=== PATIENT | female | born 2000 | race Caucasian/White ===

== ENCOUNTER 2022-07-06 08:41 | Emergency (ER) | payer OTHER, SELFPAY ==
[2022-07-06 08:50] VITALS: BP 123/85; PULSE 95; RESP 16; TEMP 37; O2SAT 99
--- NOTE | 2022-07-06 09:07 | ED.URI ---
HPI - URI/Sore Throat General Chief Complaint: Upper Respiratory Infection Stated Complaint: sore throat, cough, congestion Time Seen by Provider: 07/06/22 09:17 Source: patient and RN notes reviewed Mode of arrival: ambulatory Limitations: no limitations History of Present Illness HPI Narrative: Tennis year old female presents with concern for 4 day history of sore throat, cough, headache, body aches postnasal drainage, fever. Reports taking Mucinex and Delsym. She reports history of mono, reports her symptoms feel like when she had mono. MD elicited complaint: cough and sore throat Related Data Home Medications Medication Instructions Recorded Confirmed citalopram 10 mg tablet 10 mg PO DAILY 07/06/22 07/06/22 Allergies Allergy/AdvReac Type Severity Reaction Status Date / Time amoxicillin Allergy Hives Verified 07/06/22 09:03 Review of Systems Review of Systems: CONSTITUTIONAL: Reports malaise, fever. EYES: Denies visual changes, redness, or discharge. ENT: Reports rhinorrhea, congestion, and sore throat. CARDIOVASCULAR: Denies chest pain, palpitations, or edema. RESPIRATORY: Reports cough. Denies dyspnea. GASTROINTESTINAL: Denies abdominal pain, nausea, vomiting, diarrhea SKIN: Denies rash or itching. MUSCULOSKELETAL: Reports myalgia. NEUROLOGIC: Denies headache. All systems reviewed & are unremarkable except as noted in HPI and below PMFSH Comments At time of signature, agree with nursing past medical, surgical, social and family history. There is no relevant family history pertinent to the presenting complaint Exam Narrative: GENERAL: Well-appearing, well-nourished, and in no acute distress. HEAD: Normocephalic EYES: PERRLA, conjunctivae clear ENT: Nares clear, turbinates edematous and erythematous, clear discharge. Mucous membranes moist. TM pearly calderon with dull light reflex bilaterally; no tragal tenderness. Oropharynx not erythematous without lesions. Tonsils not enlarged and without exudate, no drooling, no hoarseness, no trismus, uvula midline. NECK: Supple. No lymphadenopathy CHEST: Clear to auscultation, breath sounds equal. No wheezing, rhonchi, rales, or stridor. No respiratory distress, speaks in full sentences. HEART: Regular rate and rhythm. No murmur heard. SKIN: Warm, dry, no rash. NEURO: Alert and oriented x3. PSYCH: Normal mood and affect Course Course Emergency Course: Patient is aware of diagnosis, understands and agrees to treatment plan. Anticipatory guidance given. Patient agrees to follow-up as directed and is aware of reasons to seek care at the emergency department. Portions of this record may have been created with voice recognition software Level of Care: Express Care Visit Vital Signs Vital signs: Vital Signs Temperature 98.6 F 07/06/22 08:50 Pulse Rate 95 07/06/22 08:50 Respiratory Rate 16 07/06/22 08:50 Blood Pressure 123/85 07/06/22 08:50 Pulse Oximetry 99 07/06/22 08:50 Temperature 98.6 F 07/06/22 08:50 Pulse Rate 95 07/06/22 08:50 Respiratory Rate 16 07/06/22 08:50 Blood Pressure 123/85 07/06/22 08:50 Pulse Oximetry 99 07/06/22 08:50 Reviewed. MDM - URI/Sore Throat MDM Narrative Medical decision making narrative: Differential diagnosis considered: Montano virus, strep pharyngitis, allergic rhinitis, upper respiratory tract infection, sinusitis, rhinosinusitis, nasopharyngitis. viral pharyngitis, otitis media, otitis externa, pneumonia, bronchitis, viral cough syndrome, viral syndrome, and influenza. Exam findings show no acute concerns or changes; patient is non-toxic appearing and is in no distress. Patient is appropriate for outpatient treatment and follow-up. Lab Data Attestation: I reviewed the patient's lab results. Critical Care Time Critical Care Time Critical Care Time: No Discharge Plan Discharge Clinical Impression: Acute viral syndrome Patient Disposition: Home, Self-Care Condition: Stable Inst
== END 2022-07-06 10:05 | disposition home or self-care (01) ==
PROVIDERS: Emergency Provider Nurse Practitioner; PCP Nurse Practitioner
DX: B34.9 Viral infection, unspecified (principal)
CPT/HCPCS: 36416; 86308; 87081; 87804; 99213; G0463

== ENCOUNTER 2024-02-24 01:19 | Day surgery (SDC) | payer OTHER, SELFPAY ==
[2024-02-17 12:32] VITALS: BMI 28.8
--- NOTE | 2024-02-17 12:39 | PC.NURSE ---
Report to the Outpatient Waiting Room, entrance under the green pavilion located off [facility], at time _0600_ on date _[id number]_. Planned Procedure Time: _0730_. Time changes happen often and if your time is changed the preop area will call you the afternoon before. - You and your visitor will be asked to self-screen and do not enter if you have any COVID symptoms. - A mask is optional within the hospital at this time. Patients may have clear liquids (water, carbonated beverages, clear teas, apple juice) until 3 hours prior to surgery with a maximum of 20 ounces. - No food from midnight until time of surgery Take the following medications with a SIP of water the morning of surgery: ____None DO NOT STOP ANY OF YOUR OTHER PRESCRIPTION MEDICATIONS PRIOR TO SURGERY ?EXCEPT THE FOLLOWING Medications to discontinue per physician ___Lillyganniall Date to take last aihv__[id number] Please no make-up, nail maldivian, hairspray, perfume, deodorant, or body powder the day of surgery. No jewelry (including any body piercings) or valuables the day of surgery, leave them at home. Please take a shower or bath the night before, or the morning of, surgery with an antibacterial soap. Wear comfortable, loose fitting clothing. - Jewelry must be removed prior to entering the operating room. Rings and piercings that are not removed may be cut off. - The hospital will not accept responsibility for valuables. - Please leave all valuables, including medications, at home the day of surgery. If you are going home after surgery, a licensed heavy truck driver must drive you home. - NO public transportation without another adult if you receive anesthesia. - We recommend that an adult stay with you for 24 hours following discharge. - We also recommend that you do not drive, make important decision, drink alcoholic beverages, or take any drugs that were not prescribed by your health care provider for at least 24 hours after your discharge time. Follow any additional instructions given to you from your surgeon. If you or anyone in your household have experienced Covid symptoms in the past week, please notify your surgeon or the nurse liaison at the phone number below for possible testing. Telephone instructions given to __Katheryn__and asked if any additional questions and then verbalized understanding. Patient advised to call surgeon office or pre surgery nurse liaison [phone] if any additional questions.
[2024-02-24] VITALS (10 sets, daily range): BP systolic 120–142; BP diastolic 63–90; PULSE 80–119; RESP 16–20; TEMP 36.6–36.7; O2SAT 98–100
[2024-02-24] MEDS: LACTATED RINGERS 1,000 ML 30 ML IV CONT ×2 (06:35→10:45)
[2024-02-24 06:46] LABS: Urine Cotinine NEGATIVE
[2024-02-24 06:55] LABS: BEDSIDEPREGUCG Negative
--- NOTE | 2024-02-24 06:56 | WPDHPUPDATE1 ---
History and Physical Update Update Date/Time: 02/24/24 06:56 History and Physical has been reviewed, including an updated exam of the patient. There are NO changes in the patient's condition. Risks, benefits, and alternatives have been discussed and questions answered. Patient agrees to proceed with procedure.
--- NOTE | 2024-02-24 06:57 | P.OP_ITS ---
Procedure Note - Detailed Date of Procedure 02/24/24 Pre-op Diagnosis macromastia Post-op Diagnosis Same Procedure Performed Bilateral reduction mammaplasty Surgeon Neal Baxter MD Anesthesia General Findings Inverted T Superior medial pedicle Tissue removed: Right: 516 grams Left: 727 grams Description of Procedure She is here today for bilateral breast reduction. Previously and again today the risks, benefits, alternatives were discussed in extensive detail. I wanted her to be very realistic about the risks involved as well as expectations. We discussed aftercare and what to monitor for. She understands we can never guarantee final breast size and there will always be asymmetry. I was very upfront and honest about the risks of sensation change and even nipple loss (). Made sure answered all of her questions to her satisfaction today and consent was obtained. She was marked in the preoperative holding area with their verification. The patient was taken to the operating room placed supine on the operating table. Anesthesia was provided by anesthesiology. She was prepped and draped in a standard sterile fashion. A surgical time-out was taken. Stab incisions were made and I tumesced with a tumescent solution. Suction lipectomy of lateral breast / chest wall was completed for contouring with 3mm matteo cannula. This was based on preoperative planning, intraoperative observation, and a rolling pinch test which was in full agreement. I marked out the nipple-areolar complex at 42 mm. I then de-epithelialized the pedicle. The pedicle was well left well more than 2 cm in thickness. I then removed the inferior portion of the breast as well as the central keel to get shape based on preoperative planning. At this point copiously irrigated with saline solution and verified a strict hemostasis. I reapproximated the pillars using a 2-0 PDS. I tailor tacked the breast into place with denis. She was placed in a sitting position. I verified the nipple-areolar complex position based on preoperative markings, intraoperative measurements, and observation which were in full agreement. This nipple-areolar complex was marked at 42 mm in size. I then placed supine and de-epithelialized this. Nipple-areolar complex was inset with 3-0 Monocryl. I closed IMF deep with 1 strattafix. I closed the vertical incision with 3-0 Monocryl in the IMF with 3- 0 stratafix. Then everything was closed using a running subcuticular 4-0 Monocryl and tissue glue. A dressing was placed followed by surgical bra. Patient was awoke and taken to PACU without difficulty. All instrument sponge counts were correct at the end of the case. Estimated Blood Loss 50 Drains No Packing No Pathology Yes (Bilateral breast tissue) Complications No immediate complications Condition Stable Disposition PACU
--- NOTE | 2024-02-24 07:21 | P.PNAN_ITS ---
Anes - Initial Pre Proc Eval Procedure: Operation Date: 02/24/24 07:30 Proposed Procedures p Bilateral Breast Reduction - Neal Baxter MD Date/Time: 02/24/24 07:21 Surgeon: Neal Baxter MD Pre Op Diagnosis: macromastia Patient Data Age: 23 Gender: F Height: 1.59 m Weight: 70.5 kg Last Vital Signs Temp 97.8 F 02/24/24 06:16 Pulse 119 H 02/24/24 06:16 Resp 16 02/24/24 06:16 BP 142/90 H 02/24/24 06:16 Pulse Ox 100 02/24/24 06:16 O2 Del Method Room Air 02/24/24 06:16 Allergies Allergy/AdvReac Type Severity Reaction Status Date / Time amoxicillin Allergy Intermediate Hives Verified 02/24/24 06:50 clavulanic acid Allergy Intermediate Hives Verified 02/24/24 06:50 [From Augmentin] Home Medications Medication Instructions Recorded Confirmed Type citalopram 10 mg tablet 10 mg PO DAILY 07/06/22 02/24/24 History ashwagandha extract 120 mg capsule 120 mg PO HS 02/17/24 02/24/24 History Laboratory Tests 02/24/24 02/24/24 06:10 06:53 POC Urine HCG, Qual Negative POC Ur Preg QC Yes Cotinine Negative Patient hx anesthesia problems: post op nausea/vomiting Family hx anesthesia problems: none Results Review: All pre-operative results and documents have been reviewed as part of the pre- operative evaluation. PMFSH Social History Social History Smoking status: Never smoker Alcohol intake: current Living arrangements: with family Spiritual care concerns: No Anes - Eval Final PreProcedure Day of Procedure 02/24/24 07:21 Patient weight: normal Heart: regular rate and rhythm Lungs: clear to auscultation Airway: Mallampati scale class II Neurological: alert and oriented Last oral intake: >/= 8 hours ASA classification: II Emergent: no Anesthetic plan: proceed Anesthesia type and monitoring: general LMA and standard monitoring Results Review: All pre-operative results and documents have been reviewed as part of the pre- operative evaluation. Informed Consent: The patient's anesthetic plan and its attendant risks and benefits were discussed with the patient/family/POA. Questions were solicited and answers provided to the satisfaction of the patient/family/POA.
[2024-02-24] MEDS: SCOPOLAMINE 1 MG PATCH 1 PATCH TRANSDERM (07:25)
[2024-02-24] MEDS: TRANEXAMIC ACID 1,000MG/ISO100 1,000 MG/100 ML BAG 200 MG IVPB (07:29)
[2024-02-24] MEDS: ceFAZolin 2 GM/D5W 50 ML 2 GM/50 ML BAG IVPB (07:29)
[2024-02-24] MEDS: LACTATED RINGERS IRRIG 1,000 ML, LIDOCAINE HCL 1% LOCAL INJ 50 ML, EPINEPHrine HCL INJ ... INFILTRATE (09:21)
[2024-02-24] MEDS: fentaNYL CITRATE INJ (*CRX) 100 MCG/2 ML VIAL 25 MCG IV PUSH ×2 (11:01→11:34)
[2024-02-24] MEDS: oxyCODONE HCL (*CRX) 2.5 MG TAB IR PO (12:16)
[2024-02-24] MEDS: ONDANSETRON HCL ODT 4 MG TABLET PO (13:24)
--- NOTE | 2024-02-24 13:29 | SUR.PHASEII ---
1315- PT READY TO DISCHARGE, BECAME NAUSEATED. MEDICATION GIVEN ORDERED. PT RESTING AT THIS TIME
--- NOTE | 2024-02-24 13:31 | SUR.PHASEII ---
1230 - PT STATES THAT SHE FEELS BETTER.
== END 2024-02-24 13:40 ==
PROVIDERS: PCP Nurse Practitioner; Visit Provider Surgery Plastic and Reconstructive Surgery
PROC: 0HBV0ZZ Excision of Bilateral Breast, Open Approach (ICD-10-PCS; CPT 19318; principal; 2024-02-24 07:30)
DX: Z41.1 Encounter for cosmetic surgery (principal); N64.82 Hypoplasia of breast; D24.1 Benign neoplasm of right breast; N60.32 Fibrosclerosis of left breast; N60.31 Fibrosclerosis of right breast; J45.909 Unspecified asthma, uncomplicated; F32.A Depression, unspecified; Z98.890 Other specified postprocedural states; Z90.11 Acquired absence of right breast and nipple; Z80.3 Family history of malignant neoplasm of breast; Z82.49 Family history of ischemic heart disease and other diseases of the circulatory system
CPT/HCPCS: 19318; 80307; 88305; A9270; J0171; J0690; J1100; J1200; J2250; J2405; J2704; J3010; J7120

== ENCOUNTER 2025-01-26 17:41 | Emergency (ER) | payer SELFPAY ==
--- OUTSIDE RECORDS SUMMARY | 2025-01-26 17:44 | XMS_ITS | Encounter Summary ---
[facility] Organization [facility] Address [address] [place] [address] Care Team Providers Care Fruit Shipper Name Role Phone Unavailable Primary Care Provider Unavailabl e Encounter Details Date Type Department Care Team (Late st Contact Info) Description 01/24/2025 External Device Data [facility] ABSTRACTION Provider, Abstract NO ADDRESS ON FILE Social History Tobacco Use Types Packs/Day Years Used Date Smoking Tobacco: Never Assessed Comments Unknown Sex and Gender Information Value Date Recorded Sex Assigned at Not on file Legal Sex Female 3:48 PM DESIGN ENGINEERING INTERN Gender Identity Not on file Sexual Orientation Not on file documented as of this encounter Plan of Treatment Not on file documented as of this encounter Visit Diagnoses Not on filedocumented in this encounter
--- OUTSIDE RECORDS SUMMARY | 2025-01-26 17:44 | XMS_ITS | Encounter Summary ---
Author Organization [facility] Address [address] [place] [address] Care Team Providers Care Senior Game Designer Name Role Phone Mary Jo Ingram NP Primary Care Provider [phone] Martina Alvarado MD Primary Care Provider + Encounter Details Date Type Department Care Team (Late Contact Info) Description 01/06/[address] [facility] [address] [place], [place] [address] [facility], [facility] Provider Air Quality Message Social History Tobacco Use Types Packs/Day Years Used Date Smoking Tobacco: Never Passive Smoke Exposure: Never Smokeless Tobacco: Never Alcohol Use Standard Drinks/Week Comments Yes 0 (1 standard drink = 0.6 oz pur e alcohol) socially AUDIT-C Answer Date Recorded Q1: How often do you have a drink containing alc ohol? Never 04/02/2020 Average Number of Drinks Not on file 020 Frequency of Binge Drinking Not on file 03/13 PHQ-2 Answer Date Recorded PHQ-2 Score - If the patient scores above 3, please move on to questions 3-9 3 02/23/2022 Comments No Sex and Gender Information Value Date Recorded Sex Assigned at Not on file Legal Sex Female 12:17 PM CDT Gender Identity Female 10/28/2021 9:05 AM CDT Sexual Orientation Not on file documented as of this encounter Plan of Treatment Upcoming Encounters Date Type Department Care Team (Late Contact Info) Description 06/21/2025 8:50 AM COOLER CONVEYOR LOADER Office Visit [facility] [place] [address] [place] [address] Martina Alvarado MD [address] [place], [place] [address] documented as of this encounter Visit Diagnoses Not on filedocumented in this encounter Additional Health Concerns Assessment Noted Time PHQ-9 Depression Total Score: 13 022 9:16 AM CDT documented as of this encounter Care Teams Senior Game Designer Relationship Specialty Start Date End Date Mary Jo Ingram NP [address] [place] [address] PCP - General NURSE PRACTITIONER 10/22/21 12/17/24 Martina Alvarado MD [address] [place], [place] [address] PCP - General FAMILY PRACTICE 12/18/24 documented as of this encounter
--- OUTSIDE RECORDS SUMMARY | 2025-01-26 17:44 | XMS_ITS | Clinical Summary ---
Author Organization [facility] Address [address] [place] [address] Care Team Providers Care Jewelry Sales Associate Name Role Phone Mary Jo Ingram APRN-[facility] Primary Care Provi christie Source Comments [facility],non-owned Affiliates and Associated Physician Practices is amultiple site organization consisting of ambulatory clinics and hospital sitesin [place], [place], [place] and [place]. This disclosure is being madepursuant to the Care Everywhere program and may not contain all information available regarding this patient. Last updated 18.[facility] Allergies Active Allergy Reactions Criticality Noted Date Comments Amoxicillin Urticaria High 12/13/2017 Amoxicillin-Pot Clavulanate Urticaria High 12/14/19 18 Augmentin Urticaria Medium 12/13/2017 Medications * Be aware that medications may not be up to date on this document. Alwaysverify current medications with the patient. cetirizine (ZYRTEC) 10 MG tablet Take 1 (one) tablet by mouth once daily Active citalopram (CeleXA) 10 MG tablet Take 1 (one) tablet by mouth once daily 2 Active Albuterol Sulfate 108 (90 Base) MCG/ACT 4 Active levonorgestrel (Mirena) 20 MCG/DAY IUD 1 (one) device by Intrauterine route Active Active Problems Problem Noted Date Diagnosed Date IUD contraception 10/06/2023 Bleeding after intercourse 08/01/202309/07 Lump in lower inner quadrant of right breast 09/07/2023 Mild intermittent asthma without complication 10/05/2023 Seasonal allergies 10/31/2021 10/05/2023 Anxiety 10/30/2021 09/07/2023 Anxiety and depression 10/30/2021 Mass of lower outer quadrant of right breast Contraception management 04/30/2017 Mass of upper outer quadrant of right breast Immunizations Immunization Administration Dates Next Due INFLUENZA VACCINE, QUADR. (F LUZONE; FLULAVAL; FLUARIX; AFLURIA QUADRIVALENT; 6MO+), 0.5 ML (IIV4) 04/30/2017 Family History Medical History Relation Name Comments Thyroid Disease Mother Relation Name Status Comments Father Alive Mother Alive Social History Tobacco Use Types Packs/Day Years Used Date Smoking Tobacco: Never Smokeless Tobacco: Never Tobacco Cessation:Counseling Given: Not Answered Alcohol Use Standard Drinks/Week Comments No 0 (1 standard drink = 0.6 oz pur e alcohol) Overall Financial Resource Strain (CARDIA) Answe r Date Recorded Difficulty of Paying Living Expenses Not hard at all 03/10/2019 PHQ-2 Answer Date Recorded Patient Health Questionnaire-2 Score 0 09/06/2024 Hunger Vital Sign Answer Date Recorded Worried About Running Out of Food in the Last Ye ar Never true 03/10/2019 Ran Out of Food in the Last Year Never true 03/10/2019 PRAPARE - Transportation Answer Date Re corded Lack of Transportation (Medical) No 03/10/2019 Lack of Transportation (Non-Medical) No 03/10/2019 Comments No Sex and Gender Information Value Date Recorded Sex Assigned at Not on file Legal Sex Female 5:39 AM TOOLMAN Gender Identity Not on file Sexual Orientation Not on file Occupation Industry Job Start Date Job End Date student Not on file Not on file Not on file Last Filed Vital Signs Vital Sign Reading Time Taken Comments Blood Pressure 126/80 09/13/2024 4:19 PM TOOLMAN Pulse 96 09/13/2024 4:19 PM TOOLMAN Temperature 36.2 C (97.2 F) 11/22/2018 11:00 AM CDT Respiratory Rate 16 03/10/2019 2:38 PM CDT Oxygen Saturation 95% 11/22/2018 11:20 AM CDT Inhaled Oxygen Concentration - - Weight 76.7 kg (169 lb) 09/13/2024 4:19 PM TOOLMAN Height 160 cm (5' 3) 03/08/2024 4:26 PM CDT Body Mass Index 29.94 03/08/2024 4:26 PM CDT Plan of Treatment Upcoming Encounters Date Type Department Care Team (Late st Contact Info) Description 09/19/2025 3:45 PM CDT Office Visit [facility] - DONOR RECRUITER [address] [place], [place] [address] [address] Khurram Harris MD [address] [place] [address] [address] [place] [address] Health Maintenance Due Date Last Done Comments HIV SCREENING 2014 HPV VACCINE (1 - 3-dose series) 2014 DTAP/TDAP/TD VACCINES (1 - Tdap) 2018 HEPATITIS B VACCINE (1 of 3 - 19+ 3-dose series) 2018 PNEUMOCOCCAL VACCINE (1 of 2 - PCV) 2018 COVID-19 VACCINE (3 - season) 2024 01/29/2021, 01/08/2021 INFLUENZA VACCINE (#1) 2025 9, 04/30/2017, 05/27/2016 CHLAMYDIA/GONORRHEA SCREENING 09/13/2025 09/13/2024, 09/08/2023, 12/28/2018, Additional history exists PAP SMEAR 09/14/2027 09/13/2024, 09/08/2023 ZOSTER VACCINE (1 of 2) 2049 HEPATITIS C SCREENING Completed 03/26/2023 DEPRESSION SCREENING Completed 09/13/2024, 09/08/19 24 HIB VACCINE Aged Out No longer eligi ble based on patient's age to complete this topic MENINGOCOCCAL (Group B) VACCINE SHARED DECISION-MAKING Aged Out No longer eligible based on patient's age to complete this topic MENINGOCOCCAL GROUPS A/C/Y/W VACCINE Aged Out No longer eligible based on patient's age to complete this topic Procedures Procedure Name Priority Date/Time Associated Diagnosis Comments PAP IG LB CT+NG RFLX HPV APTIMA ASCU Routine 09/13/2024 4:36 PM TOOLMAN Well woman exam Screening for cervical cancer from Last 3 Months or Most Recently Relevant to Health Maintenance Results * PAP IG LB CT+NG RFLX HPV APTIMA ASCU (09/13/2024 4:36 PM TOOLMAN) Diagnosis Comment [facility] ACCOUNT BILL Comment:NEGATIVE FOR INTRAEP ITHELIAL LESION OR MALIGNANCY. Specimen Adequacy Comment [facility] ACCOUNT BILL Comment: Satisfactory for evaluation. Endocervical and/or squamous metaplastic cells (endocervical component) are present. Clinician Provided ICD10 Comment [facility] ACCOUNT BILL Comment: Z01.419 Z12.4 Performed by Comment [facility] ACCOUNT BILL Comment:Valentin Maurer totechnologist (ASCP) Comment . [facility] ACCOUNT BILL Note Comment [facility] ACCOUNT BILL Comment: The Pap smear is a screening test designed to aid in the detection of premalignant and malignant conditions of the uterine cervix. It is not a diagnostic procedure and should not be used as the sole means of detecting cervical cancer. Both false-positive and false-negative reports do occur. IGLBP CPT Code Automation Comment [facility] ACCOUNT BILL Comment: This liquid based ThinPrep(R) pap test was screened with the use of an image guided system. Note Comment [facility] ACCOUNT BILL Comment: The HPV DNA reflex criteria were not met with this specimen result therefore, no HPV testing was performed. Chlamydia trachomatis ADRIANO Negative Negative [facility] ACCOUNT BILL GC DNA Probe Negative Negative [facility] ACCOUNT BILL PART OF UTERINE CERVIX / Unknown 09/13/2024 4:36 PM TOOLMAN 09/13/2024 Comment:Cervix Release to pa tom Narrative [facility] ACCOUNT BILL - 09/17/2024 5:08 PM CDT Performed at: 01 - [facility] [id number] Log Peeler: Estelle Godwin MD, Phone: [phone] Performed at: 02 - [facility] [id number] Log Peeler: Estelle Godwin MD, Phone: [phone] Specimen Comment: [id number] Specimen Comment: No. of containers..01 ThinPrep Vial Khurram Harris MD LAB - PATHOLOGY/CYTOLOGY [facility] Final Result [facility] ACCOUNT BILL [address] [place] [address] from Last 3 Months or Most Recently Relevant to Health Maintenance Insurance SELF PAY NO INSURANCE Member Subscriber Plan / Payer (Ef fective for All Dates) Name:Katheryn Baumann Member ID:Not on file Relation to Subscriber:Not on file Name:KATHERYN BAUMANN Subscriber ID:Not on file (Home) Address: [address] [place] [address] Payer ID:Not on file Group ID:Not on file Type:Self Pay Address: [facility] * Guarantor: KATHERYN CLEMENTS Account Type Relation to Patient Date of Phone Billing Address Personal/Family 2000 Care Teams Jewelry Sales Associate Relationship Specialty Start Date End Date Mary Jo Ingram, POLICE CHIEF DEPUTY-SENIOR BUSINESS MANAGER [address] [place] [address] PCP - General Nurse Practitioner 09/14/23
--- OUTSIDE RECORDS SUMMARY | 2025-01-26 17:44 | XMS_ITS | Encounter Summary ---
Author Organization [facility] Address [facility] [place] [address] Care Team Providers Care Regional Flatbed Truck Driver Name Role Phone Martina Alvarado MD Primary Care Provider + Encounter Details Date Type Department Care Team (Late Contact Info) Description 12/26/2024 Results Follow-Up [facility] Family Medicine [facility] [address] [place] [phone] Martina Alvarado MD [address] [place] [address] [phone] THYROID STIM HORMONE TSH, THYROXINE, FREE (FT4) Social History Tobacco Use Types Packs/Day Years Used Date Smoking Tobacco: Never Passive Smoke Exposure: Never Smokeless Tobacco: Never Alcohol Use Standard Drinks/Week Comments Yes 1.7 (1 standard drink = 0.6 oz p ure alcohol) socially AUDIT-C Answer Date Recorded Q1: How often do you have a drink containing alc ohol? Never 04/02/2020 Average Number of Drinks Not on file 020 Frequency of Binge Drinking Not on file 03/13 PHQ-2 Answer Date Recorded Patient Health Questionnaire-2 Score 0 12/18/2024 Comments No Sex and Gender Information Value Date Recorded Sex Assigned at Not on file Legal Sex Female 12:17 PM CDT Gender Identity Female 10/28/2021 9:05 AM CDT Sexual Orientation Not on file documented as of this encounter Plan of Treatment Upcoming Encounters Date Type Department Care Team (Late Contact Info) Description 06/21/2025 8:50 AM ENVIRONMENTAL CONSERVATION OFFICER Office Visit [facility] Family Medicine - [place] [address] [place] [address] Martina Alvarado MD [address] [place], [place] [phone] documented as of this encounter Visit Diagnoses Not on filedocumented in this encounter Additional Health Concerns Assessment Noted Time PHQ-9 Depression Total Score: 6 01/20/20 23 11:05 AM CDT documented as of this encounter Care Teams Regional Flatbed Truck Driver Relationship Specialty Start Date End Date Martina Alvarado MD [address] [place], [place] [phone] PCP - General FAMILY PRACTICE 12/18/24 documented as of this encounter
--- OUTSIDE RECORDS SUMMARY | 2025-01-26 17:44 | XMS_ITS | Clinical Summary ---
Author Organization [facility] Address [address] [place] [address] Care Team Providers Care Nutrition Director Name Role Phone Unavailable Primary Care Provider Unavailabl e Allergies Active Allergy Reactions Criticality Noted Date Comments Amoxicillin Hives High 05/20/2022 Amoxicillin-Pot Clavulanate Hives High 05/20/20 22 Medications citalopram (CeleXA) 10 mg tablet Take 1 Tablet (10 mg) by mouth daily. 90 Tablet 06/22/2022 4:36 PM AGRICULTURAL EQUIPMENT SALES MANAGER 02/23/2022 Active citalopram (CeleXA) 10 mg tablet Take 1 tablet (10 mg total) by mouth daily. 90 Tablet 1 12/21/2022 5:18 PM CDT 07/08/2022 Active albuterol sulfate HFA 90 mcg/actuation aerosol inhaler Inhale 2 puffs into the lungs every 6 (six) hours as needed for Wheezing. 17 Gram 1 01/20/2023 6:42 PM CDT 01/19/2023 Active neomycin-polymy becky-dexAMETHaso ne (Maxitrol) 3.5 mg/g-10,000 unit/g-0.1 % ointment Apply to the right eye three times daily after warm compress/mas kimber. 3.5 Gram 1 06/17/2023 7:25 PM AGRICULTURAL EQUIPMENT SALES MANAGER 06/17/2023 Active azithromycin (ZITHROMAX) 250 mg tablet Take 2 tablets by mouth on day one then 1 daily for four days. 6 Tablet 07/14/2023 4:52 PM AGRICULTURAL EQUIPMENT SALES MANAGER 07/14/2023 Active citalopram (CeleXA) 10 mg tablet Take 1 tablet (10 mg total) by mouth daily. 90 Tablet 1 12/18/2024 Active Encounters Date Type Department Care Team Description 01/24/2025 External Device Data STL ABSTRACTION Provider, Abstract 01/23/2025 External Device Data STL ABSTRACTION Provider, Abstract 12/26/2024 External Device Data ST[place] ABSTRACTION Provider, Abstract 11/30/2024 External Device Data STL ABSTRACTION Provider, Abstract 11/30/2024 External Device Data STL ABSTRACTION Provider, Abstract 11/29/2024 External Device Data STL ABSTRACTION Provider, Abstract 11/29/2024 External Device Data STL ABSTRACTION Provider, Abstract 11/28/2024 External Device Data STL ABSTRACTION Provider, Abstract from Last 3 Months Social History Tobacco Use Types Packs/Day Years Used Date Smoking Tobacco: Never Assessed Comments Unknown Sex and Gender Information Value Date Recorded Sex Assigned at Not on file Legal Sex Female 3:48 PM AGRICULTURAL EQUIPMENT SALES MANAGER Gender Identity Not on file Sexual Orientation Not on file Plan of Treatment Health Maintenance Due Date Last Done Comments HPV VACCINES (1 - 3-dose series) 2014 DTAP/TDAP/TD VACCINES (1 - Tdap) 2018 HEPATITIS B VACCINES (1 of 3 - 19+ 3-dose series) 07/12 CERVICAL CANCER SCREENING 2020 HPV/Cotest (21-29) 2020 PAP SMEAR 2020 INFLUENZA VACCINE (#1) 2025 Insurance RX [employer] (INTERNAL) [facility] [employer]
--- OUTSIDE RECORDS SUMMARY | 2025-01-26 17:44 | XMS_ITS | Encounter Summary ---
Author Organization [facility] Address [facility] [place] [address] Care Team Providers Care Partnership Marketing Manager Name Role Phone Mary Jo Ingram NP Primary Care Provider [phone] Martina Alvarado MD Primary Care Provider + Encounter Details Date Type Department Care Team (Late st Contact Info) Description 01/19/2023 Startup Questt Message Enc [facility] Family Medicine [facility] [address] [facility] [address] [place] [address] [phone] Mary Jo Ingram NP [address] [place] [address] [phone] Tdap Social History Tobacco Use Types Packs/Day Years Used Date Smoking Tobacco: Never Passive Smoke Exposure: Never Smokeless Tobacco: Never Alcohol Use Standard Drinks/Week Comments Not Currently 1.7 (1 standard drink = 0.6 oz p ure alcohol) Less than 1 a week AUDIT-C Answer Date Recorded Q1: How often do you have a drink containing alc ohol? Never 04/02/2020 Average Number of Drinks Not on file 020 Frequency of Binge Drinking Not on file 03/13 PHQ-2 Answer Date Recorded Patient Health Questionnaire-2 Score 1 01/19/2023 Comments No Sex and Gender Information Value Date Recorded Sex Assigned at Not on file Legal Sex Female 12:17 PM CDT Gender Identity Female 10/28/2021 9:05 AM CDT Sexual Orientation Not on file documented as of this encounter Functional Status * Over the past 2 weeks, how often have you been bothered by any of the following problems? Question Answer Date of Assessment Author Status Little interest or pleasure in doing things Several days 01/19/2023 11:05 AM Annika Chowdary MA Act delaney Feeling down, depressed, or hopeless Not at all 01/19/2023 11:05 AM Annika Chowdary MA Active Patient Health Questionnaire-2 Score 1 01/19/2023 11:05 AM Annika Chowdary MA Active * Question Answer Date of Assessment Author Status Trouble falling or staying asleep, or sleeping too much More than half the days 01/19/2023 11:05 AM Annika Chowdary MA Active Feeling tired or having little energy Several days 01/19/2023 11:05 AM Annika Chowdary MA Active Poor appetite or overeating Several days 01/19/2023 11:05 AM Annika Chowdary MA Active Feeling bad about yourself - or that you are a failure or have let yourself or your family down Several days 01/19/2023 11:05 AM Annika Chowdary MA Active Trouble concentrating on things, such as reading the newspaper or watching television Not at all 01/19/2023 11:05 AM Annika Chowdary MA Active Moving or speaking so slowly that other people could have noticed? Or the opposite - being so fidgety or restless that you have been moving around a lot more than usual. Not at all 01/19/2023 11:05 AM Annika Chowdary MA Active Thoughts that you would be better off or hurting yourself in some way Not at all 01/19/2023 11:05 AM Annika Chowdary MA Active Patient Health Questionnaire-9 Score 6 01/19/2023 11:05 AM Annika Chowdary MA Active * If you checked off any problems on this questionnaire so far, Question Answer Date of Assessment Author Status How difficult have these problems made it for you to do your work, take care of things at home, or get along with other people? Not difficult at all 01/19/2023 11:05 AM Annika Chowdary MA Active * Over the last 2 weeks, how often have you been bothered by any of the following problems? Question Answer Date of Assessment Author Status Feeling nervous, anxious, or on edge 2 01/19/2023 11:06 AM CDT Annika Ellington MA Act delaney Not being able to stop or control worrying 1 01/19/2023 11:06 AM CDT Annika Ellington MA Ac tive Worrying too much about different things 1 01/19/2023 11:06 AM CDT Annika Ellington MA Ac tive Trouble relaxing 1 01/19/2023 11:06 AM CDT Annika Ellington MA Active Being so restless that it is hard to sit still 0 01/19/2023 11:06 AM CDT Annika Ellington M A Active Becoming easily annoyed or irritable 0 01/19/2023 11:06 AM CDT Annika Ellington MA Act delaney Feeling afraid as if something awful might happen 0 01/19/2023 11:06 AM CDT Annika Ellington MA Act delaney ZOILA-7 Total Score 5 01/19/2023 11:06 AM CDT Annika Ellington MA Active documented as of this encounter Plan of Treatment Upcoming Encounters Date Type Department Care Team (Late st Contact Info) Description 06/21/2025 8:50 AM MANAGER LINUX Office Visit [facility] Family Medicine - [place] [address] [facility] [address] [place] [address] Martina Alvarado MD [address] [place], [place] [phone] documented as of this encounter Visit Diagnoses Not on filedocumented in this encounter Additional Health Concerns Assessment Noted Time PHQ-9 Depression Total Score: 6 01/20/20 23 11:05 AM CDT documented as of this encounter Care Teams Partnership Marketing Manager Relationship Specialty Start Date End Date Mary Jo Ingram NP [address] [place], [place] [phone] PCP - General NURSE PRACTITIONER 10/22/21 12/17/24 Maritna Alvarado MD [address] [place] [address] [phone] PCP - General FAMILY PRACTICE 12/18/24 documented as of this encounter
--- OUTSIDE RECORDS SUMMARY | 2025-01-26 17:44 | XMS_ITS | Clinical Summary ---
Author Organization [facility] Address [address] [place] [address] Care Team Providers Care Mushroom Grower Name Role Phone Martina Alvarado MD Primary Care Provider + Allergies Active Allergy Reactions Criticality Noted Date Comments Amoxicillin Hives High 12/13/2017 Amoxicillin-Pot Clavulanate Hives High 12/14/19 18 Medications levonorgestrel 20 MCG/24HR IUD 1 Device by Intrauterine route. Placed in January 2024 Active CETIRIZINE 10 MG tabletIndication s:Mild intermittent asthma without complication (HHS/HCC) TAKE 1 TABLET BY MOUTH DAILY 30 tablet 1 Active Melatonin 1 MG Chew Tab 2 Active albuterol sulfate HFA 108 (90 Base) MCG/ACT inhalerIndicatio ns:Mild intermittent asthma without complication (HHS/HCC) Inhale 2 puffs into the lungs every 6 (six) hours as needed for Wheezing. 17 g 1 3 Active citalopram (CELEXA) 10 MG tabletIndication s:Anxiety and depression Take 1 tablet (10 mg total) by mouth daily. 90 tablet 1 5 Active Active Problems Problem Noted Date Diagnosed Date Anxiety and depression 02/23/2022 Overview (12/18/2024): Well controlled with use of citalopram 10 mg daily. Denies SI/HI. Therapy twice a month. Now engaged. Will be changing jobs. More anxiety- when she started it, she was irritable a lot. Assessment & Plan (03/02/2024 7:29 PM CDT): Chronic condition. Controlled. No changes at this time. Mild intermittent asthma without complication (H HS/HCC) 10/31/2021 Overview (03/02/2024): Currently well controlled with use of albuterol PRN. Does not need to use often. Assessment & Plan (03/02/2024 7:28 PM CDT): Chronic condition. Controlled. No changes at this time. If needing to use rescue inhaler more then twice a week to notify me. Seasonal allergies 10/31/2021 Overview (03/02/2024): Well controlled with cetirizine daily. Assessment & Plan (03/02/2024 7:25 PM CDT): Chronic condition, controlled. No changes needed at this time. Avoid potential allergy triggers. Overweight (BMI 25.0-29.9) 10/31/2021 Assessment & Plan (03/02/2024 7:26 PM CDT): Encourage following a healthy well balance diet and staying active. Resolved Problems Problem Noted Date Diagnosed Date Resolved Date Asthma (HHS/HCC) 10/28/2004 10/31/2021 Encounters Date Type Department Care Team Description 12/26/2024 Results Follow-Up [place] [id number] [place] [address] Martina Alvarado MD THYROID STIM HORMONE TSH, THYROXINE, FREE (FT4) 12/18/2024 10:10 AM CDT Office Visit [facility] [address] [place] [address] Martina Alvarado MD Follow Up (Transferring from [facility]/wants to discuss weight/sugars. ) 12/18/2024 Travel from Last 3 Months Immunizations Immunization Administration Dates Next Due Dtap (Generic) 07/29/2004, 1,01/26/2000,1999,1999 Flucelvax 2 YRS+ (Multi-Dose Vial) 04/19/2019 HPV4 (Gardasil) 08/30/2012,01/15/2011,11/11/2010 Hepatitis A 11/21/2007,07/30/2006 Hepatitis B 04/27/2001,1999,1999 Hib 01/27/2001, 0,1999,1999 Influenza (Generic) 05/27/2016 Influenza Adult (Generic) 04/19/2019,04/30/2017 MMR 07/29/2004,07/30/2000 Menactra 11/12/2015,11/11/2010 Meningcoccal Group B (Bexser o)(aka Meningitis) 02/17/2018 PFIZER COVID-19 (ORIGINAL FORMULATION, PURPLE CAP) mRNA, LNP-S, PF, 30 MCG/0.3 ML DOSE 01/29/2021,01/08/2021 Polio Ipv (Generic) 07/29/2004, 1,1999,1999 Tdap (Generic) 11/11/2010 Varicella Vaccine 07/30/2006,10/28/2000 Family History Medical History Relation Comments Arthritis Father Asthma Father Early Hearing Loss Father Hypertension Father Asthma Maternal Aunt Diabetes Maternal Grandfather Hypertension Maternal Grandfather Arthritis Maternal Grandmother Miscarriages / Stillbirths Maternal Grandmother COPD Maternal Uncle 1 Arthritis Maternal Uncle 2 Asthma Maternal Uncle 2 Hypertension Maternal Uncle 2 Arthritis Mother Asthma Mother Depression Mother Mental Health Mother Miscarriages / Stillbirths Mother Heart Disease Paternal Grandfather Hypertension Paternal Grandfather Breast Cancer Paternal Grandmother Cancer Paternal Grandmother Breast canc er Asthma Sister 1 Asthma Sister 2 Duplicate Depression Sister 2 Asthma Sister 3 Depression Sister 3 Asthma Sister 4 Mental Health Sister 4 Anxiety Mental Health Sister 5 Anxiety Relation Status Comments Father Alive Maternal Aunt Alive Maternal Grandfather Alive Maternal Grandmother Alive Maternal Uncle 1 Maternal Uncle 2 Alive Mother Alive Paternal Grandfather Alive Paternal Grandmother Alive Sister 1 Alive Sister 2 Sister 3 Sister 4 Alive Sister 5 Alive Social History Tobacco Use Types Packs/Day Years Used Date Smoking Tobacco: Never Passive Smoke Exposure: Never Smokeless Tobacco: Never Tobacco Cessation:Counseling Given: No Alcohol Use Standard Drinks/Week Comments Yes 1.7 [...] AM CDT Sexual Orientation Not on file Last Filed Vital Signs Vital Sign Reading Time Taken Comments Blood Pressure 110/80 12/18/2024 10:16 AM CDT Pulse 80 12/18/2024 10:16 AM CDT Temperature 36.7 C (98.1 F) 12/18/2024 10:16 AM CDT Respiratory Rate 18 07/13/2024 12:23 PM HEAVY EQUIPMENT SERVICE TECHNICIAN Oxygen Saturation 98% 12/18/2024 10:16 AM CDT Inhaled Oxygen Concentration - - Weight 76.4 kg (168 lb 6.4 oz) 12/18/2024 10:16 AM CDT Height 161.9 cm (5' 3.75) 12/18/2024 10:16 AM C DT Body Mass Index 29.13 12/18/2024 10:16 AM CDT Plan of Treatment Upcoming Encounters Date Type Department Care Team (Late st Contact Info) Description 06/21/2025 8:50 AM HEAVY EQUIPMENT SERVICE TECHNICIAN Office Visit [facility] Family Medicine - [place] [address] [place] [phone] Martina Alvarado MD [address] [place] [address] Health Maintenance Due Date Last Done Comments Meningococcal B Vaccine (2 of 2 - Bexsero SCDM 2-dose series) 08/20/2018 02/17/2018 DTaP, Tdap and Td Vaccines (7 - Td or Tdap) 11/11/2020 11/11/2010, 07/29/2004, 01/27/2001, Additional history exists COVID-19 Vaccine (3 - season) 2024 01/29/2021, 01/08/2021 Annual Physical 03/01/2025 03/01/2024, 01/09, 10/31/2021 Cervical Cancer Screening Pap Smear (Age 21 to 29) Every 3 Years 09/14/2027 09/13/2024, 09/08/2023 Cervical Cancer Screening 09/14/2027 Pneumococcal Vaccine: Pediatrics (0 to 5 Years) and At-Risk Patients (6 to 49 Years) (1 of 2 - PCV) 07/12/2029 Postponed from 2018 (Future Appointment) Hepatitis B Vaccines Completed 04/27/2001, 1999, 1999 HPV Vaccines Completed 08/30/2012, 01/2011, 11/11/2010 Meningococcal Vaccine Completed 11/12/2015, 011 Hepatitis C Completed 03/26/2023 Chlamydia Screening Females ages 16-24 Discontinued 09/13/2024, 09/08/2023 PHQ-2 (Physician [place]) Completed 12/18/2024 RSV Immunizations Under 20 Months Aged Out No longer eligible based on patient's age to complete this topic Procedures Procedure Name Priority Date/Time Associated Diagnosis Comments THYROXINE, FREE (FT4) Routine 12/25/2024 10:36 AM CDT Weight gain THYROID STIM HORMONE TSH Today 12/25/2024 10:36 AM CDT Weight gain HEPATITIS C ANTIBODY W/RFX TO HCV RNA Routine 03/26/2023 10:47 AM CDT Need for hepatitis C screening test from Last 3 Months or Most Recently Relevant to Health Maintenance Results * THYROXINE, FREE (FT4) (12/25/2024 10:36 AM CDT) FREE T4 0.99 0.82 - 1.77 ng/dL [facility] 1 12/25/2024 10:3 6 AM CDT 12/25/2024 Narrative [facility] - 12/26/2024 2:06 AM CDT Performed at: [address] [place] [id number] Reservations Specialist: Adan Bliss PhD, Phone: [phone] Martina Alvarado MD LABORATORY Final Re sult Performing Organization Address [facility] de Phone Number [facility] [address] [place] [address] [facility] 1 * THYROID STIM HORMONE TSH (12/25/2024 10:36 AM CDT) [facility] TSH 1.310 0.450 - 4.50 uIU/mL [facility] 1 12/25/2024 10:3 6 AM CDT 12/25/2024 Narrative [facility] - 12/26/2024 2:06 AM CDT Performed at: [address] [place] [id number] Reservations Specialist: Adan Bliss PhD, Phone: [phone] Martina Alvarado MD LABORATORY Final Re sult Performing Organization Address [facility] de Phone Number [facility] [address] [place] [id number] [facility] 1 * HEPATITIS C ANTIBODY W/RFX TO HCV RNA (03/26/2023 10:47 AM CDT) [facility] HEPATITIS C AB NON-REACT DALILA NON-REACT DALILA [facility] Comment: HCV antibody was non-reactive. There is no laboratory evidence of HCV infection. In most cases, no further action is required. However, if recent HCV exposure is suspected, a test for HCV RNA (test code 90615) is suggested. For additional information please refer to http://education.[employer]/faq/XGM23z5 (This link is being provided for informational/ educational purposes only.) 03/26/2023 10:4 7 AM CDT 03/26/2023 10:51 AM CDT Narrative [facility] - 03/27/2023 5:43 AM CDT FASTING:YES FASTING: YES Resulting Agency Comment Performing Organization Information: Site ID: [id number] Name: [facility] Address: [address] [id number] Director: Lela Desai MD us Mary Jo Ingram [facility] Final Res ult [facility] FAH[address] [place]OV[place] [facility] [id number] [id number], from Last 3 Months or Most Recently Relevant to Health Maintenance Insurance [facility] Care Teams Mushroom Grower Relationship Specialty Start Date End Date Martina Alvarado MD [address] [place] [phone] PCP - General FAMILY PRACTICE 12/18/24
--- NOTE | 2025-01-26 17:46 | ED.FEMALEGU ---
HPI - Female Genitourinary General Chief complaint: Urogenital-Female Stated complaint: uti/ back pain Time Seen by Provider: 01/26/25 17:44 Source: patient, RN notes reviewed and old records reviewed Mode of arrival: ambulatory Limitations: no limitations History of Present Illness HPI Narrative: 24-year-old female presents to the [facility] with concerns for UTI. States that frequency, burning started yesterday. Has taking Cystex Denies any fevers. Denies nausea or vomiting. Has a IUD Onset (ago): day(s) (1) Related Data Home Medications ?Medication ?Instructions ?Recorded ?Confirmed ?Last Taken ?Type citalopram 10 mg tablet 10 mg PO DAILY 07/06/22 02/24/24 Unknown History ashwagandha extract 120 mg capsule 120 mg PO HS 02/17/24 02/24/24 Unknown History levonorgestrel (Mirena) 1 device intrauterine ONCE 01/26/25 01/26/25 Unknown History Allergies Allergy/AdvReac Type Severity Reaction Status Date / Time amoxicillin Allergy Intermediate Hives Verified 01/26/25 17:55 clavulanic acid (From Allergy Intermediate Hives Verified 01/26/25 17:55 Augmentin) Review of Systems Review of Systems: All systems reviewed & are unremarkable except as noted in HPI and below Constitutional: Constitutional: Reports no additional constitutional complaints Genitourinary: Genitourinary: Reports as per HPI Musculoskeletal: Musculoskeletal: Reports no additional musculoskeletal complaints Integumentary/Breasts: Skin/Breast: Reports system reviewed and no additional complaints, except as docu PMFSH Surgical History Surgical History (Updated 01/26/25 @ 18:51 by Any Winslow APRN) Hx of bilateral breast reduction surgery 02/2024 Social History Social History Smoking status: Never smoker Alcohol intake: current Living arrangements: with family Spiritual care concerns: No Comments At the time of my signature, I reviewed and agree with the nursing past medical, surgical, social, and family history. There is no relevant family history pertinent to the patient complaint. Exam Const: General: cooperative, healthy appearing, comfortable, no acute distress, well developed, alert and well nourished Nutritional Appearance: well nourished Orientation/consciousness: patient oriented x3 Limitations: no limitations HENMT: Head: normal to inspection Eyes: General: appearance normal, both eyes and all related structures Alignment and Position: alignment normal Neck: Neck: normal visual inspection, full ROM, no lymphadenopathy and no meningeal signs Chest: Chest palpation & inspection: normal inspection of the chest Resp: Effort & Inspection: normal respiratory effort and able to speak in complete sentences Auscultation: clear to auscultation bilaterally, no crackles, no rales, no rhonchi and no wheezes Cardio: Rate: regular rate GI: GI Palp: No abdominal tenderness : General: Yes no CVA tenderness Skin: General skin exam: normal color and no rashes or lesions noted Neuro: General: patient oriented x3, gait normal, moves all extremities and no meningeal signs Cognition (Neuro): normal cognition Speech: normal speech Gait exam (Neuro): Normal gait present Extrem: General: normal to inspection, full ROM, capillary refill normal and normal gait Psych: Appearance: grossly normal and well kempt Mental Status: mental status grossly normal Speech and movement: Normal speech and movement present and Clear speech present Affect: normal affect Attitude: cooperative Course Course Level of Care: Express Care Visit Vital Signs Vital signs: Vital Signs Temperature 99.5 F 01/26/25 18:01 Pulse Rate 87 01/26/25 18:01 Respiratory Rate 14 01/26/25 18:01 Blood Pressure 137/76 01/26/25 18:01 Pulse Oximetry 100 01/26/25 18:01 Oxygen Delivery Room Air 01/26/25 18:01 Temperature 99.5 F 01/26/25 18:01 Pulse Rate 87 01/26/25 18:01 Respiratory Rate 14 01/26/25 18:01 Blood Pressure 137/76 01/26/25 18:01 Pulse Oximetry 100 01/26/25 18:01 Oxygen Delivery Room Air 01/26/25 18:01 Reviewed MDM - Female Genitourinary MDM Narrative Medical decision making narrative: Patient sitting in exam. Patient is nontoxic, vitals stable. Patient presents with concern for UTI. Positive leukocytes, positive blood, will cover with Macrobid, send for culture Patient appropriate for outpatient treatment with close follow-up Discharge instructions reviewed with patient, as well as provided in writing per nursing staff. The instructions also include specific and strict return/GO TO THE ER as well as f/u information. All questions have been answered, and the patient deny any further questions with discharge and discharge plan. Some parts of this dictation were generated by voice recognition software and may contain typographical and/or grammatical inaccuracies. Differential Diagnosis Differential diagnosis: Likely urinary tract infection and cystitis Lab Data Labs: Lab Results 01/26/25 Range/Units 18:02 POC Urine Color Yellow POC Urine Clarity Clear POC Urine pH 7.0 POC Ur Specif [place] 1.015 POC Urine Protein Negative (Negative) POC Ur Glucose (UA) Negative (Negative) POC Urine Ketones Negative (Negative) POC Urine Blood 2+ (Negative) POC Urine Nitrite Negative (Negative) POC Urine Bilirubin Negative (Negative) POC Urine Urobilinogen 0.2 POC U Leukocyte Esteras 2+ (Negative) Reviewed Critical Care Time Critical Care Time Critical Care Time: No Discharge Plan Discharge Clinical Impression: Urinary tract infection Qualifiers: Urinary tract infection type: acute cystitis Hematuria presence: with hematuria Qualified Code(s): N30.01 - Acute cystitis with hematuria Patient Disposition: Home Condition: Stable Instructions: Antibiotic Form, Urinary Tract Infection in Women (ED) Additional Instructions: Increased water intake Take Tylenol as needed for pain Take antibiotic as prescribed Today your urine dip showed a probability of a UTI. You have been prescribed an antibiotic. Your urine will be sent to our lab for a culture. If at that time a bacteria grows that is not covered by the antibiotic prescribed you will be notified. Follow-up with primary care For new or worsening symptoms go directly to the emergency room Patient Language: [place] Prescriptions: New nitrofurantoin monohyd/m-cryst [Macrobid] 100 mg capsule 100 mg PO Q12H 5 Days Qty: 10 0RF Rx Instructions: must administer with a meal/food No Action Mirena 21 mcg/24hr (up to 8 yrs) 52 mg intrauterine device 1 device intrauterine ONCE Rx Instructions: as a single dose citalopram 10 mg tablet 10 mg PO DAILY Rx Instructions: takes at HS ashwagandha extract 120 mg Capsule 120 mg PO HS Follow-up/Referrals: UNKNOWN,DOCTOR [Non-Staff] - Time of Disposition: 18:06
[2025-01-26 18:01] VITALS: BP 137/76; PULSE 87; RESP 14; TEMP 37.5; O2SAT 100
[2025-01-26 18:05] LABS: EDUAAPPEAR Clear; EDUABILI Negative (Negative); EDUABLOOD 2+ (Negative); EDUACOLOR1 Yellow; EDUAGLUCOSE Negative (Negative); EDUAKETONE Negative (Negative); EDUALEUKO 2+ (Negative); EDUANITRATE Negative (Negative); EDUAPH 7.0; EDUAPROTEIN Negative (Negative); EDUASPGRAVITY 1.015; EDUAUROBILI 0.2
== END 2025-01-26 18:10 | disposition home or self-care (01) ==
PROVIDERS: Emergency Provider Nurse Practitioner; PCP Student in an Organized Health Care Education/Training Program
DX: N30.01 Acute cystitis with hematuria (principal)
CPT/HCPCS: 81003; 99213; G0463